=== PATIENT | female | born 1990 | race Caucasian/White ===

== ENCOUNTER 2018-11-11 13:52 | Outpatient (RCR) | payer OTHER, SELFPAY | END 2018-11-21 23:59 | LOC: NS 13:52 | PROVIDERS: Visit Provider Physician Assistant | DX: E66.9 Obesity, unspecified (principal); Z68.36 Body mass index [BMI] 36.0-36.9, adult; Z71.3 Dietary counseling and surveillance | CPT/HCPCS: 97802 ==

== ENCOUNTER 2018-11-26 11:29 | Outpatient (RCR) | payer OTHER, SELFPAY | END 2018-11-26 23:59 | LOC: NS 11:29 | PROVIDERS: Visit Provider Physician Assistant | DX: E66.9 Obesity, unspecified (principal); Z68.36 Body mass index [BMI] 36.0-36.9, adult | CPT/HCPCS: 97803 ==